=== PATIENT | female | born 1965 | race Caucasian/White ===

== ENCOUNTER 2016-09-13 16:26 | Emergency (ER) | payer MEDICAID ==
[~2016-09-13] VITALS: Ht 152.4 cm; Wt 58.0 kg
[~2016-09-13 16:26] MED LIST: CITA20TA19 PO; KEPP500 PO; TOPI100T9 PO
[2016-09-13] MEDS ORDERED: KETOROLAC 60MG/2ML VIAL IM ONE (18:45)
[2016-09-13 19:07] VITALS: BP 113/55
== END 2016-09-13 19:08 | disposition home or self-care (01) ==
LOC: ER 18:32
DX: R51 Headache (principal); F41.9 Anxiety disorder, unspecified; G40.909 Epilepsy, unspecified, not intractable, without status epilepticus; E03.9 Hypothyroidism, unspecified
CPT/HCPCS: 70450; 96372; 99284; J1885; Z7610